=== PATIENT | male | born 1950 | race Two or more races ===

== ENCOUNTER 2018-02-17 09:03 | Emergency (ER) | payer OTHER ==
[~2018-02-17] VITALS: Ht 180.3 cm; Wt 76.2 kg
[2018-02-17] MEDS ORDERED: TAMS0.4C (09:19)
[2018-02-17] MEDS ORDERED: BISOPROLOL FUMAR5 MG (09:19)
[2018-02-17] MEDS ORDERED: ATACAND32 MG (09:19)
[2018-02-17] MEDS ORDERED: RESTORIL7.5 MG (09:20)
== END 2018-02-17 12:23 | disposition home or self-care (01) ==
LOC: ER 09:03
DX: M51.26 Other intervertebral disc displacement, lumbar region (principal)

== ENCOUNTER 2023-10-26 15:13 | Outpatient (CLI) | payer OTHER ==
[~2023-10-26 15:13] MED LIST: ATACAND32 MG; BISOPROLOL FUMAR5 MG; RESTORIL7.5 MG; TAMS0.4C
== END 2023-10-26 15:20 | disposition home or self-care (01) ==
LOC: RAD 15:13
PROVIDERS: ATTEND Physical Medicine & Rehabilitation
DX: M54.12 Radiculopathy, cervical region (principal)